=== PATIENT | female | born 1985 | race Caucasian/White ===

== ENCOUNTER 2020-11-19 05:38 | Emergency (ER) | payer OTHER ==
[~2020-11-19] VITALS: Ht 165.1 cm; Wt 59.0 kg
--- NOTE | 2020-11-19 06:25 | NUR ---
PATIENT BIB SELF FROM HOME WITH C/O PAIN ON URINATION. SHE ALSO NOTES BLOOD IN HER URINE. PT IS AA0 X 4, BREATHING EVEN AND UNLABORED. PT ATTACHED TO MONITOR AND PULSE OX. WILL CONTINUE TO MONITOR
--- NOTE | 2020-11-19 06:26 | NUR ---
URINE COLLECTED AND SENT TO LAB
[2020-11-19] MEDS ORDERED: CEPHALEXIN MONOHYDRATE 500 MG CAPSULE PO ONE (06:43)
[2020-11-19] MEDS ORDERED: PHENAZOPYRIDINE HCL 200 MG TABLET ONE (06:43)
[2020-11-19] MEDS: CEPHALEXIN MONOHYDRATE 500 MG CAPSULE PO ONE (06:45)
[2020-11-19] MEDS: PHENAZOPYRIDINE HCL 200 MG TABLET PO ONE (06:45)
[2020-11-19] MEDS ORDERED: CEPH500C2 PO (06:55)
[2020-11-19] MEDS ORDERED: PHEN-705 PO (06:55)
[2020-11-19 07:17] LABS: BILIRUBIN,URINE NEGATIVE (NEGATIVE); COLOR,URINE YELLOW (YELLOW); LEUKOCYTE ESTERASE ,URINE MODERATE (NEGATIVE); NITRITE, URINE NEGATIVE (NEGATIVE); PROTEIN,URINE 30 mg/dl (NEGATIVE); UGLUCOSE NEGATIVE (NEGATIVE); UROBILINOGEN,URINE 0.2 EU/dL (0.2)
[2020-11-19 07:36] VITALS: BP 115/76
--- NOTE | 2020-11-19 07:36 | NUR ---
Patient discharged to home in stable condition. Written and verbal after care instructions given. Patient verbalizes understanding of instruction.
[2020-11-19 08:50] LABS: RBC,URINE 51-80 /HPF (0-2); WBC,URINE 21-50 /HPF (0-3)
[2020-11-19 08:51] LABS: BACTERIA,URINE Moderate /HPF (None Seen)
[2020-11-19 08:52] LABS: SQUAMOUS EPITHELIAL CELL,UR Few /HPF (None Seen)
== END 2020-11-19 07:37 | disposition home or self-care (01) ==
LOC: ER 05:43
DX: N30.00 Acute cystitis without hematuria (principal); R31.9 Hematuria, unspecified; R30.0 Dysuria; Z79.899 Other long term (current) drug therapy
CPT/HCPCS: 81001; 84703-TC; 87086-TC

== ENCOUNTER 2024-08-08 13:55 | Emergency (ER) | payer MEDICAID, OTHER ==
[~2024-08-08] VITALS: Ht 165.1 cm; Wt 57.6 kg
[~2024-08-08 13:55] MED LIST: CEPH500C2 PO; PHEN-705 PO
[2024-08-08 14:05] VITALS: BP 119/72; TEMP 98.1; O2SAT 99
[2024-08-08] MEDS ORDERED: IBUPROFEN 600 MG TABLET ONE (14:47)
[2024-08-08] MEDS ORDERED: LIDOCAINE 5% (PATCH) 1 EA PATCH TP ONE (14:47)
[2024-08-08] MEDS ORDERED: ONDANSETRON 4 MG TAB.RAPDIS ONE (14:48)
[2024-08-08] MEDS: ONDANSETRON 4 MG TAB.RAPDIS PO ONE (14:53)
[2024-08-08] MEDS: IBUPROFEN 600 MG TABLET PO ONE (14:53)
[2024-08-08] MEDS: LIDOCAINE 5% (PATCH) 1 EA PATCH TP SCH (15:10)
[2024-08-08] MEDS ORDERED: LIDO30AD10 TP (15:52)
[2024-08-08] MEDS ORDERED: IBUP-1953 PO (15:52)
== END 2024-08-08 16:14 | disposition home or self-care (01) ==
LOC: ER 14:06
DX: M25.512 Pain in left shoulder (principal); R11.0 Nausea; R51.9 Headache, unspecified; V43.52XA Car driver injured in collision with other type car in traffic accident, initial encounter; Y93.89 Activity, other specified; Y92.488 Other paved roadways as the place of occurrence of the external cause; Y99.8 Other external cause status
CPT/HCPCS: 99284; 73030; Q0162